=== PATIENT | male | born 1965 | race Caucasian/White ===

== ENCOUNTER 2023-09-21 17:42 | Emergency (ER) | payer BC ==
--- NOTE | 2023-09-21 18:11 | ED Physician Documentation ---
History of Present Illness - Stated complaint Stated Complaint: LT FINGER PX - Chief complaint Chief Complaint: Ext Problem - Additonal information Additional information: 57-year-old male presents emergency department for left index finger sliver. Patient said about 2 to 3 days ago he had a splinter in his finger he went to his primary care provider to have it removed but they were unable to get anything out. He was started on Keflex outpatient he has been on it for about 2 days now he does not have type 2 diabetes no history of MRSA he does have a history of skin cancer he is currently undergoing treatment for. He said no recent fevers or chills but the tip of his finger feels very swollen and he feels like the swelling is gone to the point where he can no longer handle the pain. PD PAST MEDICAL HISTORY - Past Medical History Past Medical History: Yes Other Past Medical History: skin cancer - Past Surgical History Past Surgical History: Yes Derm: Skin cancer surgery - Present Medications Home Medications: Ambulatory Orders Medication Instructions Recorded Confirmed Clindamycin [Cleocin] 300 mg PO Q8H 7 Days #42 cap 09/21/23 oxyCODONE [Roxicodone] 5 mg PO Q4HR PRN #10 tablet 09/21/23 - Allergies Allergies/Adverse Reactions: Allergies Allergy/AdvReac Type Severity Reaction Status Date / Time No Known Drug Allergies Allergy Verified 09/21/23 17:49 - Social History Does the pt smoke?: No Smoking Status: Never smoker - Immunizations Immunizations are current?: Yes PD ED PE NORMAL - Vitals Vital signs reviewed: Yes - General General: Alert and oriented X 3, No acute distress, Well developed/nourished - Derm Derm: Other - Free text exam Free text exam: Left index finger: There is significant swelling and erythema of left index finger. No tendon sheath tenderness. There is erythema and swelling around the paronychia. Finger DIP very swollen almost doubled in size in comparison to the other finger that is not affected. There is a fluid collection at the pulp of the finger that appears to be purulent. Results - Vitals Vitals: Vital Signs - 24 hr 09/21/23 09/21/23 17:50 21:47 Temperature 36.3 C L Heart Rate 85 80 Respiratory 16 16 Rate Blood Pressure 164/97 H 126/74 O2 Saturation 99 97 Procedures - Abscess I&D (location) left index finger felon Preparation: Betadine, Alcohol Incision: Incised with scalpel, Purulent drainage (large amount of purulent drainage removed from felon), Loculations broken, Irrigated, Packed, Culture obtained Other: Pt tolerated well, Dressing applied, Antibiotic prescribed PD Medical Decision Making - ED course ED course: 57-year-old male presents emergency department for left index finger inflammation. I originally tried to do a small incision where I can see a purulent fluid collection and remove the sliver but no sliver was excised. His finger then started to feel significantly more swollen and painful I then consulted with the hand surgeon who was concerned that patient may be experiencing a felon. Because of the significance of the swelling I then did a larger incision to the pulp of the left index finger midline measuring almost 2 cm in length. I then used a hemostat to loculated the fluid collections and I was able to remove a very large amount of purulent drainage. Wound cultures were collected and sent off for further evaluation. Because of the volar aspect of the fingernail also being quite swollen I decided to do an excision along the nailbed I was able to remove a very small amount of purulent drainage from the paronychia. Wound was very thoroughly pressure irrigated with normal saline. Antibiotics were changed to Cleocin and there was packing placed in the middle of the incision on the pulp of the finger to keep the wound open. Because of the infection and the amount of fluid that was removed from the finger I think that patient needs to come back to the emergency department for wound reevaluation of the wound did have packing removed. Patient unfortunately does not live here otherwise I would send him to hand surgeon specialist for further evaluation but he lives in [place] and is just here on vacation. Patient said that he plans on coming back tomorrow for further evaluation to have his wound checked. If the wound looks okay it is recommended that patient does twice a day dressing changes of that left index finger and soaking it for 15 minutes and half peroxide half saline and follow-up with a hand specialist in [place]. I am prescribing a short course of short-acting opioid pain medication for this patient. I have reviewed the patients PRIMARY EDUCATION PROFESSOR and no concerning findings were noted. I have discussed that the opioids are for short term therapy only, and will not be refilled from the ED. Patient was given very strict return precautions all questions have been a nswered safe for discharge. Departure - Departure Disposition: 01 Home, Self Care Clinical Impression: Splinter of finger, Felon of finger, Paronychia Instructions: Wound Culture, ED Foreign Body Splinter Removal Prescriptions: oxyCODONE [Roxicodone] 5 mg PO Q4HR PRN #10 tablet PRN Reason: Pain >8 Clindamycin [Cleocin] 300 mg PO Q8H 7 Days #42 cap Comments: You have a finger infection called a felmarie. We have done an incision in the middle of your finger and placed some packing so that the incision does not come closed. I am also concerned about a paronychia infection as well and so I have made an incision along the nailbed and a tunnel if any purulent drainage would like to escape that time it should hopefully encouraged to do so. Given the severity of your infection and how much purulent drainage we were able to remove I think you should come back to the emergency department tomorrow for further evaluation to make sure that your finger is not getting any worse. I have spoke with a hand specialist who recommends broadening antibiotics to Cleocin 3 times a day and I have sent this prescription to [facility] that I want you to bead picker tomorrow first thing in the morning. Tomorrow after you have been evaluated by the ER doctor and they do not feel it is getting any worse the hand surgeon is recommending you soak your finger in half peroxide half saline twice a day for 15 minutes for the next 3 days. They would like you to follow-up with a hand specialist in about a week if after tomorrow your wound is not getting any worse. We have sent to your wound cultures to the lab these can take up to 3 to 4 days for the results to come back and we will call you with the findings of these results. I am prescribing a short course of narcotic pain medication for you. These are potentially dangerous and addictive medications that should be used carefully. These medications may constipate you. Take an goaz-rtw-oddvcuw stool softener (docusate) twice daily with plenty of water while taking these medications. If you go 24 hours without a bowel movement, take [id number] miralax, per package instructions. Do not drink or drive while taking these medications. If you received narcotic or sedating medications while in the emergency department, do not drive for 24 hours. Store this medication in a safe, secure place and out of reach of children. It is a violation of federal law to give or sell this medication to another person or to use in a manner other than prescribed. The ED will not refill narcotic prescriptions, including prescriptions lost or stolen. To dispose of unwanted medications: 1. [facility] at [address] in [place] has a medication drop box. They accept prescription medications (in pill form) Saturday through Saturday 9:00 a.m. to 5:00 p.m. 2. The [facility] accepts prescription medications (in pill form only) for disposal year round. Call for more information. 3. Contact the [facility] for the next [facility] sponsored prescription drug collection event. , [phone], or [phone]; Note that many narcotic pain relievers also contain Tylenol/acetaminophen. Please ensure that your total dose of acetaminophen from all sources does not exceed 3 g (3000 mg) per day. Forms: PCP List Discharge Date/Time: 09/21/23 21:54
[2023-09-21] MEDS: BACITRACIN ZINC OINT 1 PACKET TOP STA (19:12)
[2023-09-21] MEDS: HYDROcod/ACET 5/325 Prepack 4 PO STA (19:12)
[2023-09-21] MEDS: HYDROmorphone 0.5 MG/0.5 ML SYRINGE IM STA (19:35)
[2023-09-21] MEDS ORDERED: LIDOCAINE 2% 10 ML MDV SUBQ ONE (19:44)
[2023-09-21] MEDS: CLINDAMYCIN 150 MG CAPSULE PO STA (20:25)
[2023-09-21] MEDS: ONDANSETRON ODT 4 MG TABLET TL STA (20:25)
[2023-09-21 21:49] VITALS: BP 126/74; O2SAT 97
== END 2023-09-21 21:54 | disposition home or self-care (01) ==
LOC: ED 17:42
DX: S60.451A Superficial foreign body of left index finger, initial encounter (principal); W45.8XXA Other foreign body or object entering through skin, initial encounter; Z85.828 Personal history of other malignant neoplasm of skin; L03.012 Cellulitis of left finger
CPT/HCPCS: 26010; 87070; 87205; 96372; 99283; 99284; A9270; J1170; Q0162

== ENCOUNTER 2023-09-23 12:56 | Emergency (ER) | payer BC ==
[2023-09-23 13:19] VITALS: O2SAT 99
[2023-09-23] MEDS: TETANUS/DIPHTHERIA/PERTUSSIS 0.5 ML SYRINGE IM ONE (15:01)
--- NOTE | 2023-09-23 15:01 | ED Physician Documentation ---
PD HPI WOUND RECHECK - Stated complaint Stated Complaint: LT INDEX FINGER - Chief complaint Chief Complaint: Ext Problem - Histroy obtained from History obtained from: Patient - Additional information Additional information: Patient presenting for evaluation of wound check after felon drainage 2 days ago. Patient was seen 2 days ago With swelling and tenderness to finger and had an elliptical incision made to the fingertip pad with purulent drainage as well as drainage of the paronychia. He was started on Cleocin.Microbiology is shows staff aureus but sensitivities are not yet back. Patient states he is feeling better and that the pain is doing much better. He was directed to return to the emergency department for another wound check. He is visiting from [place] is planning on going home tomorrow. Denies fever. He has been compliant with his antibiotics. Review of Systems Skin: reports: Lesions PD PAST MEDICAL HISTORY - Past Surgical History Past Surgical History: Yes Derm: Skin cancer surgery - Present Medications Home Medications: Ambulatory Orders Medication Instructions Recorded Confirmed Clindamycin [Cleocin] 300 mg PO Q8H 7 Days #42 cap 09/21/23 09/23/23 oxyCODONE [Roxicodone] 5 mg PO Q4HR PRN #10 tablet 09/21/23 09/23/23 Fluticasone/Salmeterol [Advair 1 inh INH PRN PRN 09/23/23 09/23/23 100-50 Diskus] Pembrolizumab [Keytruda] 1 applic SUBQ ONCE 09/23/23 09/23/23 - Allergies Allergies/Adverse Reactions: Allergies Allergy/AdvReac Type Severity Reaction Status Date / Time No Known Drug Allergies Allergy Verified 09/23/23 13:13 - Social History Does the pt smoke?: No Smoking Status: Never smoker - Immunizations Immunizations are current?: Yes PD ED PE NORMAL - General General: Alert and oriented X 3, No acute distress, Well developed/nourished - HEENT HEENT: Atraumatic - Respiratory Respiratory: No respiratory distress - Extremities Extremities: Other (L index finger - Open wound to fingertip pad, mild erythema but good range of motion at joints of the finger, No tenderness on palpation, small amount of packing was removed; No signs of abscess around finger nail edges) Results - Vitals Vitals: Vital Signs - 24 hr 09/23/23 09/23/23 13:13 15:20 Temperature 36.7 C Heart Rate 79 86 Respiratory 16 18 Rate Blood Pressure 147/93 H 153/83 H O2 Saturation 99 99 Oxygen O2 Source Room air PD Medical Decision Making - ED course ED course: Pt here for wound check after felon and paronychia drainage 2 days ago. Pt reports improvement in pain and symptoms. Still with swelling but no significant tenderness and per pt report does not seem to be getting worse. Micro reviewed with sensitivities pending. Pt understands to continue with antibiotic and have follow up when he returns to his home state tomorrow. Departure - Departure Disposition: Home, Self Care Clinical Impression: Finger infection Condition: Stable Comments: Your wound looks to be doing okay and I do not think needs further drainage at this time. It is a good sign that your pain is much better. Continue with taking your antibiotic. The recommendations that were received by the ED yesterday from the hand surgeon are for you to soak your finger in half peroxide half saline twice a day for 15 minutes for the next 3 days. You can continue to use bacitracin on the wound. If you develop any worsening please return to the emergency department. You should also follow-up with your primary care or hand specialist when you return to your home state in the next week. Forms: PCP List Discharge Date/Time: 09/23/23 15:24
[2023-09-23] MEDS: BACITRACIN ZINC OINT 1 PACKET TOP STA (15:02)
[2023-09-23 15:22] VITALS: BP 153/83
== END 2023-09-23 15:24 | disposition home or self-care (01) ==
LOC: ED 12:56
DX: L03.012 Cellulitis of left finger (principal); Z23 Encounter for immunization
CPT/HCPCS: 90471; 90715; 99282; 99283; A9270